=== PATIENT | male | born 1995 | race Two or more races ===

== ENCOUNTER 2025-08-12 09:44 | Emergency (ER) | payer OTHER ==
[~2025-08-12] VITALS: Ht 162.6 cm; Wt 63.5 kg
[2025-08-12 09:46] VITALS: TEMP 98.3
[2025-08-12] MEDS ORDERED: ACETAMINOPHEN ES 500 MG TABLET ONE (09:58)
[2025-08-12] MEDS: ACETAMINOPHEN ES 500 MG TABLET PO ONE (10:01)
[2025-08-12 11:14] VITALS: BP 128/89; O2SAT 98
== END 2025-08-12 11:12 ==
LOC: EDUNIT# 09:44 → ER 09:50
DX: S09.90XA Unspecified injury of head, initial encounter (principal); W19.XXXA Unspecified fall, initial encounter; Y93.89 Activity, other specified; Y92.89 Other specified places as the place of occurrence of the external cause; Y99.8 Other external cause status
CPT/HCPCS: 70450-TC